=== PATIENT | female | born 1955 | race Caucasian/White ===

== ENCOUNTER 2019-12-27 08:31 | Day surgery (SDC) | payer BC ==
[2019-12-20 14:56] VITALS: BMI 30.9
[2019-12-27] MEDS ORDERED: MIDAZOLAM HCL 2 MG/2 ML SINGLE DOSE VIAL ONE ×2 (12:00)
[2019-12-27] MEDS ORDERED: methylPREDNISolone ACET (DEPO) 40 MG/1 ML VIAL ONE (12:01)
[2019-12-27] MEDS ORDERED: BUPIVACAINE HCL/PF 0.25% (2.5MG/ML) 10 ML VIAL ONE (12:01)
[2019-12-27] MEDS ORDERED: EPINEPHrine 1:1,000 1 MG/1 ML - 30ML VIAL (INJECTION) ONE (12:01)
[2019-12-27] MEDS ORDERED: ceFAZolin SODIUM 1 GM VIAL ONE ×2 (12:34→12:35)
[2019-12-27] MEDS ORDERED: EPHEDRINE SULFATE/0.9% NACL/PF 50 MG/10 ML SYRINGE NR ONE (13:00)
[2019-12-27] MEDS ORDERED: FLUTICASONE PROPIONATE 44 MCG IH PRN (13:21)
--- NOTE | 2019-12-27 13:23 | PN ---
Progress Note (short form) - Note Progress Note: 64F s/p surgical arthroscopy & synovial biopsy LEFT knee POD #0. -Pain control: per anaesthesia team; NSAID's OK. -DVT PPx: - Mechanical: SHAHBAZ's, SCD's. -f/u OR pathology, microbiology. -Incentive spirometry. -PT/OT/Rehab, OOB. -WBAT LLE. -Cane/crutches as needed. -Diet as tolerated. -Keep dressing clean & dry; d/c dressing on Wednesday, place waterproof Band-Aid's over incisions, then OK to resume showering. -Discharge planning: f/u [facility] [place] office next week; call for appointment; . -Will follow. Robert Caldwell MD (Orthopaedic Surgery).
--- NOTE | 2019-12-27 13:25 | OP ---
Operative Note - Note: Operative Date: 12/27/19 Pre-Operative Diagnosis: Synovitis left knee Operation: Surgical arthroscopy left knee with synovial biopsy Findings: Diffuse arthrofibrosis Synovitis Post-Operative Diagnosis: Same as Pre-op Surgeon: Vladimir Caldwell Anesthesiologist/ROLLER PRINT TENDER: Gwen Winters MD Anesthesia: General Specimens Removed: Culture sticks (synovial fluid) x 2. Tissue - microbiology (aerobic, anaerobic, AFB, fungal). Tissue - pathology. Estimated Blood Loss (mls): 5 Fluid Volume Replaced (mls): 800 (Crystalloid) Operative Report Dictated: Yes
[2019-12-27] MEDS ORDERED: oxyCODONE HCL 5 MG TABLET PO PRN (13:32)
[2019-12-27] MEDS ORDERED: ONDANSETRON 4 MG/2 ML VIAL IVPUSH PRN (13:32)
[2019-12-27] MEDS ORDERED: PROMETHAZINE HCL 25 MG/1 ML VIAL IVPUSH PRN (13:32)
[2019-12-27] MEDS ORDERED: LACTATED RINGERS SOLUTION 1,000 ML IV SCH (13:45)
[2019-12-27 15:23] VITALS: BP 136/83; PULSE 62
[2019-12-27 15:24] VITALS: TEMP 98
--- NOTE | 2019-12-27 21:24 | OP ---
DATE OF OPERATION: 12/27/2019 SURGEON: Vladimir Caldwell MD PREOPERATIVE DIAGNOSIS: Left knee synovitis in the presence of previous total knee replacement. POSTOPERATIVE DIAGNOSES: 1. Left knee synovitis in the presence of previous total knee replacement. 2. Arthrofibrosis, left knee. PROCEDURE PERFORMED: Surgical arthroscopy, left knee with synovial biopsy. SPECIMENS SENT: Culture sticks x2 - microbiology. Tissue specimen - microbiology. Tissue specimen - pathology. TOURNIQUET: Not used. INTRAVENOUS FLUIDS: Crystalloid 800 mL. Knee lavaged with 2 L normal saline solution. ARTHROSCOPY PORTALS: Standard anterolateral and lateral suprapatellar. CLOSURE: 3-0 nylon. The remainder of this dictation will be inserted via RADSONE. MD ABELARDO Sinha/[id number]
[2019-12-28] MEDS ORDERED: PATIENT'S OWN MEDICATION (NON-FORMULARY) (Candesartan/Hydrochlorothiazid [Candesartan-Hctz PO SCH (10:00)
--- NOTE | 2019-12-29 17:28 | PATH ---
Surgical Pathology Report Patient Name: KACI NO [facility]. Rec. #: [id number] /Age/Gender: 1955 (Age: 64) / F Account: [id number] Location: [facility] Taken: 12/27/2019 Received: 12/27/2019 Reported: 12/29/2019 Physicians: Robert Caldwell M.D. Specimen(s) Received LEFT KNEE TISSUE BIOPSY Clinical History Left knee synovitis (arthroplasty in site) Final Diagnosis KNEE TISSUE, LEFT, BIOPSY: FIBROSYNOVIAL TISSUE WITH HISTIOCYTIC AND GIANT CELL INFILTRATE ASSOCIATED WITH SCATTERED GRANULAR POLARIZABLE MATERIAL, AND REACTIVE CHANGES. NO ACUTE INFLAMMATION IDENTIFIED. Comment: Suggest clinical correlation. Electronically Signed Shahida Abbasi M.D. Gross Description Received in formalin, labeled "left knee tissue biopsy" are 3 white-jensen, irregular portions of soft tissue measuring 0.5-0.7 cm. in greatest dimension. The specimens are submitted in toto in one cassette. MLSZ/12/28/2019 fredrick/12/28/2019
== END 2019-12-27 15:28 | disposition home or self-care (01) ==
LOC: FASU 08:31
PROVIDERS: ATTEND Orthopaedic Surgery Orthopaedic Surgery of the Spine
PROC: 0SBD4ZX Excision of Left Knee Joint, Percutaneous Endoscopic Approach, Diagnostic (ICD-10-PCS; principal; 2019-12-27 10:00)
DX: M65.862 Other synovitis and tenosynovitis, left lower leg (principal); Z96.652 Presence of left artificial knee joint
CPT/HCPCS: 36415; 84132; 87070; 87075; 87102; 87116; 87205; 87206; 87210; 88304-TC; 94760